=== PATIENT | female | born 1980 | race Caucasian/White ===

== ENCOUNTER 2020-08-07 19:55 | Emergency (ER) | payer OTHER ==
[~2020-08-07] VITALS: Ht 154.9 cm; Wt 52.6 kg
[~2020-08-07 19:55] MED LIST: IBUP-1968 PO; LACT1CAP57 PO; LEVO250T2 PO; ONDA4TAB5 PO
[2020-08-07 20:04] VITALS: BP_SYST 127
[2020-08-07] MEDS ORDERED: PANTOPRAZOLE SODIUM 40 MG/VIAL (PROTONIX) IVP ONE (21:00)
[2020-08-07] MEDS ORDERED: NACL 0.9% 2,000 ML IV ONE (21:00)
[2020-08-07] MEDS ORDERED: MORPHINE 2 MG/ML INJ. SYRINGE IVP ONE (21:00)
[2020-08-07] MEDS ORDERED: ONDANSETRON HCL 4 MG/2 ML VIAL IVP ONE (21:00)
[2020-08-07 21:45] LABS: BASOPHILS % (AUTO) 0.1 % (0.0-2.0); HEMATOCRIT 45.5 % (36-48); HEMOGLOBIN 15.6 g/dL (12.0-16.0); LYMPHOCYTES # (AUTO) 0.7 K/uL (1.0-5.5); LYMPHOCYTES % (AUTO) 12.6 % (20.5-51.5); MEAN CORPUSCULAR HEMOGLOBIN 32 pg (27-31); MEAN CORPUSCULAR HGB CONC 34 % (32-36); MEAN CORPUSCULAR VOLUME 92 fL (79.0-98.0); MONOCYTES # (AUTO) 0.4 K/uL (0.0-1.0); MONOCYTES % (AUTO) 6.4 % (1.7-9.3); NEUTROPHILS # (AUTO) 4.8 K/uL (1.8-7.7); NEUTROPHILS % (AUTO) 80.9 % (40.0-70.0); PLATELET COUNT (AUTO) 194 K/uL (130-430); RED BLOOD CELL COUNT(AUTO) 4.93 MIL/uL (4.2-6.2); RED CELL DISTRIBUTION WIDTH 12.4 % (9.0-15.0); WHITE BLOOD COUNT (AUTO) 5.9 K/uL (4.8-10.8)
[2020-08-07 22:21] LABS: PROTHROMBIN TIME 10.4 SECS (9.5-12.5)
[2020-08-07 22:22] LABS: CALCIUM 8.9 mg/dL (8.4-11.0); CREATININE 0.73 mg/dL (0.55-1.30); POTASSIUM 3.2 mmol/L (3.5-5.1)
[2020-08-07 22:28] LABS: ALBUMIN 4.2 g/dL (3.4-4.8); TOTAL BILIRUBIN 0.4 mg/dL (0.0-1.0)
[2020-08-07] MEDS ORDERED: methylPREDNISolone SOD SUCC/PF 62.5 MG/ML VIAL IVP ONE (23:00)
[2020-08-07] MEDS ORDERED: AMOXICILLIN/CLAVULANATE POTASSIUM 875 MG TABLET PO ONE (23:00)
[2020-08-07 23:02] LABS: BILIRUBIN,URINE NEGATIVE (NEGATIVE); BLOOD, URINE 3+ (NEGATIVE); CLARITY/URINE CLOUDY (CLEAR); COLOR,URINE YELLOW (YELLOW); GLUCOSE,URINE NEGATIVE (NEGATIVE); KETONES,URINE TRACE (NEGATIVE); LEUKOCYTE ESTERASE ,URINE NEGATIVE (NEGATIVE); PROTEIN URINE 1+ (NEGATIVE)
[2020-08-07 23:03] LABS: NITRITE, URINE NEGATIVE (NEGATIVE); UROBILINOGEN,URINE 0.2 (0.2-1.0)
[2020-08-07 23:19] LABS: BACTERIA,URINE FEW /HPF (None Seen); RBC,URINE 20-50 /HPF (0-3); WBC,URINE 0-3 /HPF (0-3)
[2020-08-07 23:36] LABS: ERYTHROCYTE SEDIMENTATION RATE 12 MM/HR (0-20)
[2020-08-07 23:41] VITALS: BP_SYST 119
== END 2020-08-07 23:41 | disposition home or self-care (01) ==
LOC: SED 19:55
DX: J18.9 Pneumonia, unspecified organism (principal); R10.30 Lower abdominal pain, unspecified; R19.7 Diarrhea, unspecified; Z79.899 Other long term (current) drug therapy; Z88.8 Allergy status to other drugs, medicaments and biological substances; Z20.828 Contact with and (suspected) exposure to other viral communicable diseases
CPT/HCPCS: 36415; 71045; 76376; 80053; 81000-TC; 82272; 84703; 85025; 85610-TC; 85651-TC; 85730-TC; 86900; 86901; 96361; 96374; 96375; 99285

== ENCOUNTER 2020-08-13 14:06 | Inpatient (IN) | payer OTHER, SELFPAY ==
[~2020-08-13] VITALS: Ht 160 cm; Wt 53.1 kg
[2020-08-13 14:19] VITALS: BP_SYST 105
--- NOTE | 2020-08-13 14:27 | NUR ---
ambulated to bed 7
--- NOTE | 2020-08-13 14:28 | NUR ---
Patient came from home for evaluation of fever,cough,congestion and chest pain x1 week. Patient reports taking tylenol that is effective in managing her fever.
--- NOTE | 2020-08-13 14:30 | NUR ---
ER Dr. Dent at bedside examining patient.
[2020-08-13] MEDS ORDERED: DEXAMETHASONE SOD PHOSPHATE 10 MG/ML VIAL IVP ONE (15:00)
[2020-08-13 15:27] LABS: HEMOGLOBIN 14.1 g/dL (12.0-16.0)
[2020-08-13] MEDS ORDERED: DEXAMETHASONE SOD PHOSPHATE 10 MG/ML VIAL ONE (15:27)
[2020-08-13] MEDS ORDERED: AZITHROMYCIN 500 MG/VIAL (ZITHROMAX) IV ONE (15:28)
[2020-08-13 15:32] LABS: CALCIUM 8.2 mg/dL (8.4-11.0); CREATININE 0.79 mg/dL (0.55-1.30); POTASSIUM 3.5 mmol/L (3.5-5.1)
[2020-08-13 15:37] LABS: HEMATOCRIT 41.2 % (36-48); MEAN CORPUSCULAR HEMOGLOBIN 31 pg (27-31); MEAN CORPUSCULAR HGB CONC 34 % (32-36); MEAN CORPUSCULAR VOLUME 92 fL (79.0-98.0); PROTHROMBIN TIME 10.1 SECS (9.5-12.5); RED CELL DISTRIBUTION WIDTH 12.4 % (9.0-15.0); WHITE BLOOD COUNT (AUTO) 10.9 K/uL (4.8-10.8)
[2020-08-13 15:39] LABS: ALBUMIN 3.2 g/dL (3.4-4.8); TOTAL BILIRUBIN 0.3 mg/dL (0.0-1.0)
[2020-08-13 15:44] LABS: PLATELET COUNT (AUTO) 180 K/uL (130-430)
[2020-08-13 15:45] LABS: BAND % (MANUAL) 6 % (0-6); BASOPHILS % (MANUAL) 0 % (0-2); EOSINOPHILS % (MANUAL) 0 % (0-7); LYMPHOCYTES % (MANUAL) 1 % (20-46); MONOCYTES % (MANUAL) 2 % (0-11)
[2020-08-13] MEDS ORDERED: AZITHROMYCIN 500 MG in NS 250 ML IV ONE (16:30)
[2020-08-13] MEDS ORDERED: CHOLECALCIFEROL (VITAMIN D3) 2,000 UNIT TABLET PO ONE (16:30)
[2020-08-13] MEDS ORDERED: ASCORBIC ACID 500 MG TABLET PO ONE (16:30)
--- NOTE | 2020-08-13 16:38 | NUR ---
Patient will be admitted to care of Dr. Walker. Admitted to medsurg unit. Patient to be held, no rooms available at this time. FRANCK [employer] production supervisor notified. Belongings list completed. Complete and up to date summary report printed. SBAR report to be given at bedside with opportunity for questions.
[2020-08-13] MEDS: NACL 0.9% 1,000 ML IV SCH (16:48)
--- NOTE | 2020-08-13 19:02 | NUR ---
All patient needs endorsed to FRANCK Garrido for continuation of care.
--- NOTE | 2020-08-13 19:16 | NUR ---
Dr. Walker at bedside.
--- NOTE | 2020-08-13 21:10 | NUR ---
Provided polaet as request.
--- NOTE | 2020-08-13 21:16 | NUR ---
Patient resting quietly. No acute distress noted. Vital signs within normal range.
--- NOTE | 2020-08-13 22:21 | NUR ---
Given report to FRANCK Rojas.
--- NOTE | 2020-08-13 22:21 | NUR ---
Patient will be admitted to care of Dr. Walker. Admitted to M/S unit. Will go to room 133B. Belongings list completed. Complete and up to date summary report printed. SBAR report to be given at bedside with opportunity for questions.
[2020-08-13 22:50] VITALS: BP_SYST 109
[2020-08-13] MEDS: ASCORBIC ACID 500 MG TABLET PO SCH (22:50)
[2020-08-13] MEDS: CHOLECALCIFEROL (VITAMIN D3) 2,000 UNIT TABLET PO SCH (22:50)
--- NOTE | 2020-08-13 22:50 | NUR ---
ADMISSION RECEIVED PATIENT FROM ER FOR COVID PNEUMONIA, ALERT, ORIENTED X4, VITALS STABLE. ADMISSION DATA AND ASSESSMENT DONE AND DOCUEMNTED. PLAN OF CARE DISCUSSED AND PATIENT VERBALIZED UNDERSTANDING. ALL NEEDS ATTENDED TO. WILL CONTINUE TO MONITOR.
--- NOTE | 2020-08-14 00:38 | NUR ---
CONSULT REASON FOR CONSULT: COVID/ PNA PERSON I SPOKE WITH: [facility] CONSULTING PHYSICIAN: DR. ROSS MATERIALS RESEARCH ENGINEER PHONE NUMBER: [phone] ORDERING PHYSICIAN: DR. CHURCH
--- NOTE | 2020-08-14 02:13 | NUR ---
PATIENT RESTING: Patient resting quietly. No acute distress noted. Vital signs within normal range.
--- NOTE | 2020-08-14 04:12 | NUR ---
ROUNDS PATIENT ASLEEP, RESPIRATIONS EVEN AND UNLABORED, WILL CONTINUE TO MONITOR.
[2020-08-14] MEDS: NACL 0.9% 1,000 ML IV SCH ×2 (05:50→21:45)
[2020-08-14 06:34] LABS: BASOPHILS # (AUTO) 0.1 K/uL (0.0-0.2); BASOPHILS % (AUTO) 0.6 % (0.0-2.0); HEMATOCRIT 38.9 % (36-48); LYMPHOCYTES # (AUTO) 0.5 K/uL (1.0-5.5); LYMPHOCYTES % (AUTO) 4.6 % (20.5-51.5); MEAN CORPUSCULAR HEMOGLOBIN 31 pg (27-31); MEAN CORPUSCULAR HGB CONC 33 % (32-36); MEAN CORPUSCULAR VOLUME 93 fL (79.0-98.0); MONOCYTES # (AUTO) 0.4 K/uL (0.0-1.0); MONOCYTES % (AUTO) 3.9 % (1.7-9.3); NEUTROPHILS # (AUTO) 9.7 K/uL (1.8-7.7); NEUTROPHILS % (AUTO) 90.9 % (40.0-70.0); PLATELET COUNT (AUTO) 198 K/uL (130-430); RED BLOOD CELL COUNT(AUTO) 4.17 MIL/uL (4.2-6.2); RED CELL DISTRIBUTION WIDTH 12.5 % (9.0-15.0); WHITE BLOOD COUNT (AUTO) 10.7 K/uL (4.8-10.8)
[2020-08-14 08:00] VITALS: BP_SYST 121
--- NOTE | 2020-08-14 08:00 | NUR ---
INITIAL NOTES In bed, awake, afebrile, has dry cough. On room air o2 sat at 95%. denies any chest pain or shortness of breath at this time. IVF infusing well. call light within reach. will monitor.
[2020-08-14 08:03] LABS: CREATININE 0.56 mg/dL (0.55-1.30); POTASSIUM 4.1 mmol/L (3.5-5.1)
[2020-08-14] MEDS: ASCORBIC ACID 500 MG TABLET PO SCH (09:24)
[2020-08-14] MEDS: DEXAMETHASONE SOD PHOSPHATE 10 MG/ML VIAL IVP SCH (09:24)
[2020-08-14] MEDS: CHOLECALCIFEROL (VITAMIN D3) 2,000 UNIT TABLET PO SCH (09:24)
[2020-08-14] MEDS: ENOXAPARIN SODIUM 40 MG/0.4 ML SYRINGE SUBCUT SCH (09:25)
[2020-08-14] MEDS: cefTRIAXone 1 GM IVPB PREMIX 50 ML IV SCH (11:00)
[2020-08-14 12:00] VITALS: BP_SYST 115
--- NOTE | 2020-08-14 12:00 | NUR ---
Notes- Provided lunch, no complaints. enc to call as needed. Patient verbalize understanding.
[2020-08-14] MEDS: AZITHROMYCIN 500 MG in NS 250 ML IV SCH (13:00)
[2020-08-14 13:19] LABS: C-REACTIVE PROTEIN QUANT 8.5 mg/dL (0-0.5)
--- NOTE | 2020-08-14 16:06 | NUR ---
notes- Watching tv, afebrile, no distress noted.
[2020-08-14 16:39] VITALS: BP_SYST 106
--- NOTE | 2020-08-14 18:26 | NUR ---
Notes- Eating dinner, No distress noted.
--- NOTE | 2020-08-14 19:30 | NUR ---
OPENING NOTES RECEIVED CARE OF PT AND SBAR REPORT. PT IS AAOX4, RESTING IN BED, NO S/S OF ACUTE DISTRESS NOTED. BREATHING IS EVEN AND UNLABORED TO ROOM AIR. CALL LIGHT IS WITH PT. SAFETY AND ISOLATION PRECAUTIONS MAINTAINED. WILL MONITOR.
[2020-08-14 21:45] VITALS: BP_SYST 110
[2020-08-14] MEDS ORDERED: ACETAMINOPHEN 325 MG TABLET PO PRN (21:45)
--- NOTE | 2020-08-14 21:45 | NUR ---
IVF NEW BAG OF NS HUNG AND SET TO INFUSE AT ORDERED RATE. VSS. BREATHING IS EVEN AND UNLABORED TO ROOM AIR. PT GIVEN FRESH WATER AND CHOCOLATE PUDDING PER REQUEST. SAFETY AND ISOLATION PRECAUTIONS MAINTAINED. WILL MONITOR.
[2020-08-15] MEDS ORDERED: ACETAMINOPHEN 325 MG TABLET ONE (00:14)
[2020-08-15] MEDS ORDERED: ACETAMINOPHEN 325 MG TABLET PO PRN (00:15)
--- NOTE | 2020-08-15 00:23 | NUR ---
TYLENOL PT REQUESTING TYLENOL FOR MILD PAIN. TYLENOL GIVEN ORDERED PRN. MEDICATION ACTIONS AND POTENTIAL SIDE EFFECTS DISCUSSED, PT VERBALIZED UNDERSTANDING. NO S/S OF ACUTE DISTRESS. SAFETY AND ISOLATION PRECAUTIONS MAINTAINED. WILL MONITOR.
[2020-08-15 00:58] VITALS: BP_SYST 106
--- NOTE | 2020-08-15 02:39 | NUR ---
RN ROUNDS: PATIENT ASLEEP, RESPIRATIONS EVEN AND UNLABORED, WILL CONTINUE TO MONITOR.
[2020-08-15 08:00] VITALS: BP_SYST 104
--- NOTE | 2020-08-15 08:00 | NUR ---
NOTE Pt sitting up in bed eating her breakfast. IV in left AC intact and patent infusing IVF's well. No SOB/resp distress or pain/discomfort noted at this time. No needs noted at this time. Bed in low position. Pt ambulates to restroom with steady gait - no weakness/dizziness noted at this time. Call light within reach.
[2020-08-15] MEDS: cefTRIAXone 1 GM IVPB PREMIX 50 ML IV SCH (08:46)
[2020-08-15] MEDS: CHOLECALCIFEROL (VITAMIN D3) 2,000 UNIT TABLET PO SCH (08:47)
[2020-08-15] MEDS: ASCORBIC ACID 500 MG TABLET PO SCH (08:47)
[2020-08-15] MEDS: ENOXAPARIN SODIUM 40 MG/0.4 ML SYRINGE SUBCUT SCH (08:48)
[2020-08-15] MEDS: DEXAMETHASONE SOD PHOSPHATE 10 MG/ML VIAL IVP SCH (08:48)
[2020-08-15] MEDS: AZITHROMYCIN 500 MG in NS 250 ML IV SCH (10:05)
--- NOTE | 2020-08-15 10:15 | NUR ---
Note Dr Rivas on the floor to assess pt and write orders. No needs noted at this time. Call light within reach.
[2020-08-15 12:00] VITALS: BP_SYST 11
[2020-08-15] MEDS: NACL 0.9% 1,000 ML IV SCH (12:20)
--- NOTE | 2020-08-15 14:00 | NUR ---
Note Pt was informed of discharge order - to go home today. Family will pick pt up around 5pm. squeezer operator was also notified of discharge home order. No needs noted at this time. Call light within reach.
--- NOTE | 2020-08-15 14:25 | NUR ---
Dietitian Recommendations *Recommend continue Regular Diet Please see Nutrition Assessment for details. EP,WILNER
[2020-08-15 15:43] VITALS: BP_SYST 106
[2020-08-15 16:00] VITALS: BP_SYST 110
--- NOTE | 2020-08-15 16:45 | NUR ---
Note Dr Garcia on the floor and was notified that pt has been discharged home today at 1700.
--- NOTE | 2020-08-15 17:00 | NUR ---
Note Pt's IV in left AC was dc'd. Site benign and no bleeding/drainage/swelling/tenderness at site noted at this time. Pt was given discharge instructions and prescription. Questions/concerns were answered at this time. Pt was checked on q1' and PRN all shift for needs and care. Pt was maintained with safety and isolation precautions all shift. Pt dressed in street clothes and packed all her belongings. Pt checked side table and drawers for belongings. No SOB/resp distress or pain/discomfort noted at this time. Pt stable at this time. No needs noted at this time. Call light within reach. Pt off the floor via wheelchair with all her belongings and discharge paperwork/prescriptions.
--- NOTE | 2020-08-17 12:52 | NUR ---
Discharge Follow Up Phone Call Phoned patient, , on 08/16/20 and left a voicemail message. Phoned again today and spoke with patient. Patient stated she has a follow up appointment with her PCP on 08/22/20. She is self isolating as recommended. She is having some trouble getting all of her medications filled but expects that will be resolved today. She did not want further help with this issue. No other questions or concerns.
== END 2020-08-15 17:00 | disposition home or self-care (01) | DRG 177 ==
LOC: SED 14:06 → SMU 16:30 → STU 20:36 → SMU 08-14 22:42
PROVIDERS: ADMIT Internal Medicine; ATTEND Internal Medicine
DX: U07.1 COVID-19 (principal); J12.89 Other viral pneumonia; J96.01 Acute respiratory failure with hypoxia; Z79.01 Long term (current) use of anticoagulants; Z88.8 Allergy status to other drugs, medicaments and biological substances
CPT/HCPCS: 36415; 36600; 71045; 80048; 80053; 82550-TC; 82728; 82803-TC; 83605; 83615-TC; 83880; 84484; 85007; 85025; 85027; 85379; 85384-TC; 85610-TC; 85730-TC; 86140; 86710; 87040-TC; 93005; 96365; 96366; 96375; 99291; G0378; J0456; J0696; J1100; J1650; J7050; U0003